=== PATIENT | male | born 1970 | race Caucasian/White ===

== ENCOUNTER 2017-01-18 22:05 | Emergency (ER) | payer OTHER ==
[~2017-01-18] VITALS: Ht 160 cm; Wt 80.0 kg
[2017-01-18 22:08] VITALS: Ht 160 cm; Wt 80.0 kg
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
[2017-01-18] MEDS ORDERED: LIDOCAINE 4% CR TOP ONE (23:00)
[2017-01-18] MEDS ORDERED: HYDROCODONE/APAP (5/325) TAB PO ONE (23:00)
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
[2017-01-18] MEDS ORDERED: HYDR-906 PO (23:40)
[2017-01-18] MEDS ORDERED: IBUP-1542 PO (23:40)
[2017-01-19 00:28] VITALS: BP 120/72; PULSE 75; RESP 17; TEMP 98.8
== END 2017-01-19 00:28 | disposition home or self-care (01) ==
LOC: FTE 22:05
DX: S01.511A Laceration without foreign body of lip, initial encounter (principal); S40.012A Contusion of left shoulder, initial encounter; V28.4XXA Motorcycle driver injured in noncollision transport accident in traffic accident, initial encounter
CPT/HCPCS: 70486; 73030; 73060; Z7502; Z7610

== ENCOUNTER 2017-01-26 17:31 | Emergency (ER) | payer OTHER ==
[~2017-01-26] VITALS: Ht 165.1 cm; Wt 70.0 kg
[~2017-01-26 17:31] MED LIST: HYDR-906 PO; IBUP-1542 PO
[2017-01-26 17:34] VITALS: Ht 165.1 cm; Wt 70.0 kg
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
== END 2017-01-26 18:43 | disposition home or self-care (01) ==
LOC: E/R 17:31
DX: Z48.02 Encounter for removal of sutures (principal)
CPT/HCPCS: 99281